=== PATIENT | female | born 1970 | race Hispanic/Latino ===

== ENCOUNTER 2017-04-01 17:50 | Emergency (ER) | payer OTHER ==
[~2017-04-01] VITALS: Ht 147.3 cm; Wt 74.6 kg
[~2017-04-01 17:50] MED LIST: CIPRO500 MG OR; LORTAB 7.5 OR; METFORMIN500 M1 OR; NYSTATIN100000 M1 MT; ULTRAM50 MG OR; VALIUM5 MG OR; ZOCOR40 MG OR
[2017-04-01] MEDS ORDERED: NAPROSYN500 MG PO (18:49)
[2017-04-01] MEDS ORDERED: FLEXERIL PO (18:49)
[2017-04-01] MEDS ORDERED: no home meds (18:58)
[2017-04-01 19:19] VITALS: BP 110/48
== END 2017-04-01 19:19 | disposition home or self-care (01) | DRG 563 ==
LOC: ED 17:50
DX: S39.012A Strain of muscle, fascia and tendon of lower back, initial encounter (principal); X50.1XXA Overexertion from prolonged static or awkward postures, initial encounter; Y92.89 Other specified places as the place of occurrence of the external cause